=== PATIENT | male | born 1980 | race Caucasian/White ===

== ENCOUNTER 2018-09-24 06:51 | Emergency (ER) | payer MEDICARE, OTHER ==
[~2018-09-24] VITALS: Ht 170.2 cm; Wt 104.3 kg
[2018-09-24 07:43] LABS: BASOPHILS ABSOLUTE AUTO 0.07 K/mm3 (0.00-0.23); BASOPHILS PERCENT AUTO 0 % (0-2); EOSINOPHILS ABSOLUTE AUTO 0.01 K/mm3 (0.00-0.68); EOSINOPHILS PERCENT AUTO 0 % (0-6); Hematocrit 38.7 % (37.0-53.0); Hemoglobin 12.5 g/dL (13.5-17.5); IMMATURE GRAN ABSOLUTE AUTO 0.11 K/mm3 (0.00-0.10); IMMATURE GRAN PERCENT AUTO 1 % (0-1); LYMPHOCYTES ABSOLUTE AUTO 0.67 K/mm3 (0.84-5.20); LYMPHOCYTES PERCENT AUTO 4 % (21-46); MONOCYTES ABSOLUTE AUTO 1.03 K/mm3 (0.16-1.47); MONOCYTES PERCENT AUTO 6 % (4-13); Mean Corpuscular HGB 26.2 pg (26.0-34.0); Mean Corpuscular HGB Conc 32.3 g/dL (31.5-36.5); Mean Corpuscular Volume 81 fL (80-100); NEUTROPHILS ABSOLUTE AUTO 16.65 K/mm3 (1.96-9.15); NEUTROPHILS PERCENT AUTO 90 % (41-73); Platelet Count 503 K/mm3 (150-400); RDW Coefficient Variation 13.8 % (11.7-14.2); RDW Standard Deviation 41.1 fL (35.1-46.3); Red Blood Cell Count 4.78 M/mm3 (4.30-5.90); White Blood Cell Count 18.54 K/mm3 (4.00-11.30)
[2018-09-24 08:04] LABS: Alanine Aminotransfer (ALT/SGP 34 U/L (12-78); Albumin, Blood 3.3 g/dL (3.4-5.0); Albumin/Globulin Ratio 0.7 (0.8-1.8); Alk Phos 115 U/L (50-136); Anion Gap 8 mmol/L (6-16); Aspartate Aminotrans (AST/SGOT 19 U/L (12-37); Bilirubin, Total 1.1 mg/dL (0.1-1.0); Blood Urea Nitrogen 7 mg/dL (8-24); Bun/Creatinine Ratio 10.6 (12.0-20.0); CO2, Blood 26 mmol/L (21-32); Calcium, Blood 9.2 mg/dL (8.5-10.1); Chloride, Blood 103 mmol/L (98-108); Creatinine, Blood 0.66 mg/dL (0.60-1.20); Globulin, Blood 4.6 g/dL (2.2-4.0); Glomerular Filtration Rate >60 (60-); Glucose, Blood 183 mg/dL (70-99); Potassium, Blood 3.8 mmol/L (3.5-5.5); Sodium, Blood 137 mmol/L (136-145); Total Protein, Blood 7.9 g/dL (6.4-8.2); Troponin I <0.015 ng/mL (0.000-0.040)
[2018-09-24 09:15] LABS: International Normalized Ratio 1.24; Prothrombin Time Results 12.9 Sec (9.7-11.5)
== END 2018-09-24 16:12 | disposition short-term general hospital (02) ==
LOC: ER 06:51
PROVIDERS: Emergency Medicine
DX: I31.3 Pericardial effusion (noninflammatory) (principal); Q86.0 Fetal alcohol syndrome (dysmorphic)
CPT/HCPCS: 71260; 80053; 83690; 84484; 85025; 85610; 85651; 85730; 86140; 93005; 93010; 96374-59; 96375-59; 96376-59; 99285-25; J2270; J2405; J3010; Q9967

== ENCOUNTER 2022-10-13 08:57 | Day surgery (SDC) | payer MEDICARE, OTHER ==
[~2022-10-13] VITALS: Ht 167.6 cm; Wt 107.2 kg
[2022-10-13] VITALS (12 sets, daily range): BP systolic 127–140; BP diastolic 75–99
--- NOTE | 2022-10-13 14:39 | NUR ---
REPORT RECIEVED. PT RESTING WITH EYES CLOSED. DECLINES PO FLUIDS AND FOOD. ON ROOM AIR. VSS. DRESSINGS C/D/I
--- NOTE | 2022-10-13 15:10 | NUR ---
PT TOLERATING PO FLUIDS. SISTER AT BEDSIDE
--- NOTE | 2022-10-13 15:28 | NUR ---
PT TOLERATING PO FLUID FLUID AND APPLESAUCE. SAYS PAIN IS GETTING BETTER. Discharge instructions reviewed with patient. Patient verbalizes understanding. Copy given to patient to take home. SISTER AT [facility].
--- NOTE | 2022-10-13 15:46 | NUR ---
Patient up to Ambulate independently. Gait steady. Dressing to procedure site clean, dry, intact with no visible drainage, swelling, erythema or bruising noted. Discharged via wheelchair to private car for ride home.
== END 2022-10-13 15:48 | disposition home or self-care (01) ==
LOC: ORSCMMR 08:57 → ORD 10:30 → ORSCMMR 15:48
PROVIDERS: Surgery
PROC: 0WQF0ZZ Repair Abdominal Wall, Open Approach (ICD-10-PCS; principal; 2022-10-13 10:30)
PROC: 0YUA4JZ Supplement Bilateral Inguinal Region with Synthetic Substitute, Percutaneous Endoscopic Approach (ICD-10-PCS; principal; 2022-10-13 10:30)
PROC: 8E0W4CZ Robotic Assisted Procedure of Trunk Region, Percutaneous Endoscopic Approach (ICD-10-PCS; principal; 2022-10-13 10:30)
DX: K40.20 Bilateral inguinal hernia, without obstruction or gangrene, not specified as recurrent (principal); K42.9 Umbilical hernia without obstruction or gangrene; F17.210 Nicotine dependence, cigarettes, uncomplicated; K21.9 Gastro-esophageal reflux disease without esophagitis; E66.9 Obesity, unspecified; Z68.38 Body mass index [BMI] 38.0-38.9, adult
CPT/HCPCS: 49650; 49591; S2900; A9270; C1781; J0690; J1100; J1885; J2250; J2370; J2405; J2704; J2795; J3010; J7120

== ENCOUNTER 2023-05-22 16:09 | Emergency (ER) | payer MEDICARE, OTHER ==
[~2023-05-22] VITALS: Ht 170.2 cm; Wt 98.9 kg
[2023-05-22 16:55] VITALS: BP 138/98
[2023-05-22] MEDS ORDERED: Lidocaine 4% 1 Patch TOP ONE (21:40)
[2023-05-22] MEDS ORDERED: Ketorolac Tromethamine 15mg Vial IM ONE (21:45)
== END 2023-05-22 22:23 | disposition home or self-care (01) ==
LOC: ER 16:09
DX: M54.41 Lumbago with sciatica, right side (principal); K40.90 Unilateral inguinal hernia, without obstruction or gangrene, not specified as recurrent
CPT/HCPCS: 76857; 96372; 99283-25; A9270; J1885

== ENCOUNTER 2023-06-11 06:13 | Day surgery (SDC) | payer MEDICARE, OTHER ==
[2023-06-11] VITALS (9 sets, daily range): BP systolic 116–135; BP diastolic 73–88
[~2023-06-11] VITALS: Ht 167.6 cm; Wt 98.0 kg
[~2023-06-11 06:13] MED LIST: HYDR1TAB94 PO; THERA-D2000 UNIT PO
[2023-06-11] MEDS ORDERED: CeFAZolin Sodium 2,000 MG in NS 50 ML IV SCH (06:20)
[2023-06-11] MEDS ORDERED: Lactated Ringer's 1,000 ML IV SCH (06:20)
[2023-06-11] MEDS ORDERED: Bupivacaine 0.5% HCl 5 MG/ML 30MLVIAL ONE (07:09)
[2023-06-11] MEDS ORDERED: Lidocaine HCl 2% 20 ML MDV ONE (07:15)
[2023-06-11] MEDS ORDERED: Ondansetron HCl 2 MG / ML 2ML Vial ONE (07:15)
[2023-06-11] MEDS ORDERED: Rocuronium Bromide 10 MG/ML 5ML Injection IV ONE ×2 (07:15→10:26)
[2023-06-11] MEDS ORDERED: Dexamethasone Sod Phos 10 MG/ML 1ML VIAL ONE (07:15)
[2023-06-11] MEDS ORDERED: propofoL 20 ML IV ONE (07:15)
[2023-06-11] MEDS ORDERED: FentaNYL Citrate 50 MCG/ML 5 ML Injection ONE (07:15)
[2023-06-11] MEDS ORDERED: HYDROcodone 5-APAP 325 TAB PO PRN (12:00)
[2023-06-11] MEDS ORDERED: Sugammadex Sodium 200 MG/2ML SDV (100 MG/ML) ONE (12:02)
--- NOTE | 2023-06-11 13:17 | NUR ---
Discharge instructions reviewed with patient. Patient verbalizes understanding. Copy given to patient to take home. DRESSING CLEAN DRY AND INTACT, NO DRAINAGE. PT DENIES PAIN. ICE PACK AND SCROTAL SUPPORT PROVIDED. IV DC'D INTACT. ASSISTED PT AND HIS BROTHER TO DRESS PT. PT ABLE TO TRANSFER TO WHEELCHAIR WITH ONE PERSON ASSIST. FAMILY DENIES HAVING ANY QUESTIONS PRIOR TO DISCHARGE. PT OUT OF DEPARTMENT VIA WHEELCHAIR.
== END 2023-06-11 13:15 | disposition home or self-care (01) ==
LOC: ORSCMMR 06:13 → ORD 07:30 → ORSCMMR 07:30
PROVIDERS: Surgery
PROC: 0YU50JZ Supplement Right Inguinal Region with Synthetic Substitute, Open Approach (ICD-10-PCS; principal; 2023-06-11 07:30)
DX: K40.91 Unilateral inguinal hernia, without obstruction or gangrene, recurrent (principal); K21.9 Gastro-esophageal reflux disease without esophagitis; E66.9 Obesity, unspecified; Z68.34 Body mass index [BMI] 34.0-34.9, adult
CPT/HCPCS: C1781; J0690; J1100; J2405; J2704; J3010; J7120

== ENCOUNTER 2024-11-15 13:00 | Emergency (ER) | payer MEDICARE, OTHER ==
[~2024-11-15] VITALS: Ht 167.6 cm; Wt 106.6 kg
[2024-11-15 13:51] VITALS: BP 143/100
[2024-11-15] MEDS ORDERED: Ketorolac Tromethamine 15mg Vial IM ONE (13:55)
== END 2024-11-15 15:13 | disposition home or self-care (01) ==
LOC: ER 13:00
DX: S61.412A Laceration without foreign body of left hand, initial encounter (principal); I48.91 Unspecified atrial fibrillation; Z79.899 Other long term (current) drug therapy; Z59.89 Other problems related to housing and economic circumstances; W31.0XXA Contact with mining and earth-drilling machinery, initial encounter
CPT/HCPCS: 73130; 90471; 90715; 96372; 99283-25; J1885